=== PATIENT | female | born 1985 | race Two or more races ===

== ENCOUNTER 2018-12-04 08:49 | Emergency (ER) | payer OTHER ==
[2018-12-04 08:54] VITALS: BP 147/97; PULSE 76; TEMP 98.9; BMI 32.2
[2018-12-04] MEDS ORDERED: IBUPROFEN 600 MG TABLET (FP) PO ONE ×2 (09:32→09:38)
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
== END 2018-12-04 10:52 | disposition home or self-care (01) ==
LOC: JERFT 08:49
DX: M25.561 Pain in right knee (principal); V43.52XA Car driver injured in collision with other type car in traffic accident, initial encounter; Y93.89 Activity, other specified; Y92.410 Unspecified street and highway as the place of occurrence of the external cause
CPT/HCPCS: 73560-TC-RT-FY; 73590-TC-RT-FY; 99281-25